=== PATIENT | female | born 1945 | race Caucasian/White ===

== ENCOUNTER 2022-08-09 09:01 | Outpatient (REF) | payer MEDICARE, SELFPAY ==
--- NOTE | ~2022-08-09 | XR_ITS ---
EXAMINATION: XR CHEST CLINICAL INFORMATION: Asthma COMPARISON: None available. TECHNIQUE: 2 views of the chest were obtained. FINDINGS: No significant abnormality is noted involving the heart, lungs, mediastinum, bony thorax or soft tissues. XR/XR chest 2V IMPRESSION: Unremarkable chest examination.
== END 2022-08-09 09:02 | disposition home or self-care (01) ==
LOC: HO.HMGCX 09:01
PROVIDERS: Visit Provider Internal Medicine
DX: J45.909 Unspecified asthma, uncomplicated (principal)
CPT/HCPCS: 71046

== ENCOUNTER 2023-09-12 10:52 | Outpatient (AMB) | payer MEDICARE, SELFPAY ==
[2023-09-12 10:57] VITALS: BP 120/78; PULSE 98; O2SAT 96; BMI 27.1
--- NOTE | 2023-09-12 10:57 | A.OFFVIS_ITS ---
Vital Signs 09/12/23 10:57 Height 4 ft 11 in Weight 134 lb 6 oz BMI 27.1 BP 120/78 Blood Pressure Location Rt brachial Position Sitting Pulse 98 Pulse Source Pulse Oximeter Pulse Oximetry (%) 96 Oxygen Delivery Method Room Air Intake Visit Reasons: Shortness of breath Allergies shellfish derived Allergy (Severe, Verified 09/12/23 11:24) Anaphylaxis acetaminophen [From Percocet] Allergy (Intermediate, Verified 09/12/23 11:24) Hives oxycodone [From Percodan] Allergy (Intermediate, Verified 09/12/23 11:24) Hives aspirin Allergy (Mild, Verified 09/12/23 11:24) Hives meperidine [From Demerol] Allergy (Mild, Verified 09/12/23 11:24) Rash morphine Allergy (Mild, Verified 09/12/23 11:24) Rash propoxyphene [From Darvon] Allergy (Verified 09/12/23 11:24) Hives ivp dye Allergy (Mild, Uncoded 09/12/23 11:24) Rash most norcotic Allergy (Unknown, Uncoded 09/12/23 11:03) hives, nausea NARCOTICS Adverse Reaction (Unknown, Uncoded 09/12/23 11:03) UNKNOWN HPI HPI Shortness of breath: Details: Lenore is a pleasant 78 year old female, never smoker, with underlying asthma, HTN, hyperlipidemia and palpitations. She was referred by cardiology for pulmonary evaluation. She reports dyspnea on exertion, such as stairs, wheezing, and dry cough. Denies any chest tightness. She previously was using flovent and albuterol with poor effect, recently switched to Breo 100 mcg 4 weeks ago with minimal change. She reports environmental allergies, allergy testing many years ago. She has 1 dog and 1 cat at home. She denies any occupational exposures. She reports multiple first degree members with asthma. She also notes her daughter has a lung condition which is similar to cystic fibrosis and s/p lobectomy, however can not recall condition. She denies any genetic testing. She had prior PFT from last year which reportedly revealed that her lung function has been decreasing. She believes last PFT was performed at [facility] in 2022. She states she has some lung scarring noted on prior imaging. She had recent CXR three weeks ago which was unremarkable, report below. [facility] Social History Patient Tobacco Use Status: Never used Tobacco Review of Systems Const Denies chills, Denies excessive sweating, Denies fever(s), Denies headache(s) and Denies night sweats Eyes Denies dry eyes, Denies irritation and Denies itchy eyes ENT Reports Normal hearing present, Denies headache(s), Denies nasal congestion, Denies nasal discharge, Denies post nasal drip and Denies sore throat Card Denies chest pain, Denies chest pain at rest, Denies chest pain with activity, Denies claudication, Denies leg edema, Denies orthopnea and Denies paroxysmal nocturnal dyspnea Resp Denies chest congestion, Denies excessive phlegm production, Denies pain on inspiration, Denies pain with cough and Denies stridor Musc Denies myalgias Neuro Reports Normal hearing present and Denies headache(s) Endo Denies excessive sweating Marquis/Lymph Denies lymphadenopathy Aller/Immun Denies itchy eyes and Denies seasonal rhinorrhea Physical Exam Vital Signs: Last Vital Signs Pulse 98 09/12/23 10:57 BP 120/78 09/12/23 10:57 Pulse Ox 96 09/12/23 10:57 Oxygen Delivery Method Room Air 09/12/23 10:57 BMI result Body Mass Index 27.1 Const General: cooperative, healthy appearing, comfortable, no acute distress, well developed and alert Orientation/consciousness: patient oriented x3 Limitations: no limitations HEENT Head: Yes normal to inspection, Yes normocephalic and Yes atraumatic Ears: hearing grossly normal bilaterally and external ears normal Eyes General: appearance normal, both eyes and all related structures Eyelids: Yes eyelids normal Sclerae: sclerae normal EOM: EOMs intact bilaterally Neck Neck: Yes normal visual inspection and Yes no lymphadenopathy Lymphatic: no lymphadenopathy noted Chest Chest palpation & inspection: normal inspection of the chest Resp Effort & Inspection: normal respiratory effort, able to speak in complete sentences, no audible wheezes, no cough, no stridor, not tachypneic, no tripod positioning and no use of accessory muscles Auscultation: wheezes (improved with duoneb) expiratory wheezes Cardio Jugular venous distension: no JVD Rate: regular rate Rhythm: regular rhythm Skin Other: warm, dry General skin exam: no rashes or lesions noted Neuro General: patient oriented x3 Cranial nerves: Yes Normal hearing present Cognition (Neuro): normal cognition Gait exam (Neuro): Normal gait present Extrem General: Yes normal to inspection, Yes capillary refill normal, Yes no clubbing, cyanosis or edema and Yes no pedal edema Psych Appearance: grossly normal and well kempt Speech and movement: Normal speech and movement present and Clear speech present Affect: normal affect Attitude: cooperative Thought process: Normal thought process present Thought content: Normal thought content present Insight: Good insight present (Psych) Judgement: Good judgement present (Psych) Office Procedures Nebulizer Treatment Nebulizer Treatment 40902-Mxefzonoi/MDI RX initial, or Nebulizer Subsequent Treatment Office Meds ipratropium 0.5 mg-albuterol 3 mg (2.5 mg base)/3 mL nebulization soln Performing Provider: Phoebe Hamm NP Performing Location: [facility] [place] Pulmonology Services-[facility] Administered by: Shruthi Ricardo LPN on 09/12/23 11:52 Dose Route Admin Location Dispensed Lot Number Expiration Date [facility] [employer] 3 mL inhalation 3 mL [id number] 12/24/24 91215-808-80 [employer] Results Reviewed Results Reviewed: [facility] [place] [facility] [address] [place] [address] XRay Report Signed Patient: Lenore Albright MR#: [id number] : 1945 Acct:[id number] Age/Sex: 77 / F ADM Date: 08/09/22 Loc: .[facility] Attending Dr: Navid Villanueva MD Ordering Physician: Navid Villanueva MD Date of Service: 08/09/22 Procedure(s): XR chest 2V Accession Number(s): [id number] cc: Navid Villanueva MD~ EXAMINATION: XR CHEST CLINICAL INFORMATION: Asthma COMPARISON: None available. TECHNIQUE: 2 views of the chest were obtained. FINDINGS: No significant abnormality is noted involving the heart, lungs, mediastinum, bony thorax or soft tissues. XR/XR chest 2V IMPRESSION: Unremarkable chest examination. Dictated By: Lobito Cadet MD Signed By: <Electronically signed by Lobito Cadet MD in OV> 08/09/22 0935 Assessment & Plan Assessment & Plan (1) Asthma: Code(s): J45.909 - Unspecified asthma, uncomplicated Category: Medical (2) Environmental allergies: Code(s): Z91.09 - Other allergy status, other than to drugs and biological substances Category: Medical Plan Lenore's symptoms are likely related to underlying asthma. Will obtain prior PFT to assess severity. Will increase Breo from 100 mcg to 200 mcg and send for RAST as there may be an allergic component contributing to symptoms. On exam patient with expiratory wheezes throughout, improved with duoneb. Will also send in 5 day prednisone course. Recent CXR unremarkable. Will consider chest CT after evaluation at next visit. All questions were answered and patient is in agreement of plan. Will follow up to review results and response to increased Breo. Orders: Orders Immunoglobulin E 09/12/23 Z91.09 - Other allergy status, other than to drugs and biological substances Complete Blood Count Auto Diff 09/12/23 Z91.09 - Other allergy status, other than to drugs and biological substances Resp Allergy Profile Region I 09/12/23 Z91.09 - Other allergy status, other than to drugs and biological substances AMB Nebulizer Treatment 09/12/23 J45.909 - Unspecified asthma, uncomplicated Medications: New prednisone 40 mg x 5 days followed by 20 mg x 5 days 40 mg (2 x 20 mg) PO DAILY 15 tabs 0RF fluticasone furoate-vilanterol 200-25 mcg/dose (Breo Ellipta) 1 inh inhalation DAILY 60 ea 3RF Coding Level of Care Code New Pt Level 4 (22859) Diagnoses Asthma J45.909 Environmental allergies Z91.09 CPT Codes Nebulizer Treatment - Nebulizer Treatment, initial or subsequent: 32485- Nebulizer/MDI RX initial, or Nebulizer Subsequent Treatment ([id number])
== END 2023-09-12 12:03 | disposition home or self-care (01) ==
PROVIDERS: PCP Internal Medicine; Referring Provider Nurse Practitioner Family; Visit Provider Nurse Practitioner Family
DX: J45.909 Unspecified asthma, uncomplicated (principal); Z91.09 Other allergy status, other than to drugs and biological substances
CPT/HCPCS: 99204

== ENCOUNTER → 2023-09-12 10:52 | Outpatient (BNVA) | payer MEDICARE, SELFPAY | PROVIDERS: PCP Internal Medicine; Referring Provider Nurse Practitioner Family; Visit Provider Nurse Practitioner Family | DX: J45.909 Unspecified asthma, uncomplicated (principal); Z91.09 Other allergy status, other than to drugs and biological substances | CPT/HCPCS: 94640; 99202 ==

== ENCOUNTER 2023-09-12 12:07 | Outpatient (REF) | payer MEDICARE, SELFPAY ==
[2023-09-12 13:56] LABS: MANUAL DIFF FLAG NO
[2023-09-12 13:58] LABS: Basophils Percent Auto 0.5 % (0-2); Eosinophils Absolute Auto 0.1 X10*3/uL (0.0-0.4); Eosinophils Percent Auto 0.9 % (0-4); Hematocrit 42.4 % (37.0-47.0); Hemoglobin 13.6 g/dl (12.0-16.0); Imm Gran Abs Auto 0.03 X10*3/uL (0.00-0.03); Imm Gran Pct Auto 0.4 % (0.0-0.4); Lymphocytes Absolute Auto 2.4 X10*3/uL (1.2-4.9); Lymphocytes Percent Auto 30.5 % (20-40); Mean Corpuscular HGB Conc 32.1 g/dl (31.0-35.0); Mean Corpuscular Volume 93.4 fL (80.0-98.0); Mean Platelet Volume 9.2 fL (9.4-12.3); Monocytes Absolute Auto 0.7 X10*3/uL (0.1-1.2); Neutrophils Absolute Auto 4.6 x10*3/uL (2.0-8.3); Neutrophils Percent Auto 58.7 % (45-73); Platelet Count 282 X10*3/uL (160-400); Red Blood Count 4.54 X10*6/uL (4.20-5.50); Red Cell Distribution Width 13.1 % (11.0-16.0); White Blood Count 7.8 X10*3/uL (4.8-10.8)
[2023-09-16 05:57] LABS: Immunoglobulin E <2 kU/L (<OR=114)
[2023-09-16 18:53] LABS: Class Alternaria alternata 0; Class Aspergillus fumigatus 0; Class Bermuda Grass 0; Class Birch 0; Class Cat Dander 0; Class Cladosporium herbarum 0; Class Cockroach 0; Class Common Ragweed 0; Class Cottonwood 0; Class Derm. pterony 0; Class Dermatophagoides farinae 0; Class Dog Dander 0; Class Elm 0; Class Maple Box Elder 0; Class Mountain Cedar 0; Class Mouse Urine Protein 0; Class Mugwort 0; Class Oak 0; Class Penicillium crysogenum 0; Class Rough Pigweed 0; Class Sheep Sorrel 0; Class Sycamore 0; Class Timothy Grass 0; Class Walnut Tree 0; Class White Ash 0; Class White Mulberry 0; D001 IgE D pteronyssinus <0.10 kU/L; D002 - IgE D farinae <0.10 kU/L; E001 - IgE Cat Dander <0.10 kU/L; E005 - IgE Dog Dander <0.10 kU/L; E072-IgE Mouse Urine <0.10 kU/L; G002 IgE Bermuda Grass <0.10 kU/L; G006 - IgE Timothy Grass <0.10 kU/L; I006-IgE Cockroach, German <0.10 kU/L; Immunoglobulin E <2 kU/L (<OR=114); M001 IgE Penicillium chrysogen <0.10 kU/L; M002 - IgE Cladosporium herbar <0.10 kU/L; M003 - IgE Aspergillus fumigat <0.10 kU/L; M006 - IgE Alternaria alternat <0.10 kU/L; T001 IgE Maple/Box Elder <0.10 kU/L; T003 IgE Common Silver Birch <0.10 kU/L; T006 - IgE Cedar, Mountain <0.10 kU/L; T007 - IgE Oak, White <0.10 kU/L; T008 IgE Elm, American <0.10 kU/L; T010 - IgE Walnut <0.10 kU/L; T011 - IgE Maple Leaf Sycamore <0.10 kU/L; T014 - IgE Cottonwood <0.10 kU/L; T015 - IgE Ash, White <0.10 kU/L; T070 - IgE White Mulberry <0.10 kU/L; W001 - IgE Ragweed, Short <0.10 kU/L; W006 - IgE Mugwort <0.10 kU/L; W014 IgE Pigweed, Common <0.10 kU/L; W018 IgE Sheep Sorrel <0.10 kU/L
== END 2023-09-12 12:08 | disposition home or self-care (01) ==
LOC: HO.WFDLDS 12:07
PROVIDERS: Visit Provider Nurse Practitioner Family
DX: Z91.09 Other allergy status, other than to drugs and biological substances (principal)
CPT/HCPCS: 36415; 82785; 85025; 86003

== ENCOUNTER 2023-10-08 11:06 | Outpatient (AMB) | payer MEDICARE, SELFPAY ==
--- NOTE | 2023-10-08 11:06 | A.OFFVIS_ITS ---
Vital Signs 10/08/23 11:11 Height 4 ft 11 in Weight 133 lb 2 oz BMI 26.9 BP 140/78 H Blood Pressure Location Rt brachial Position Sitting Pulse 119 H Pulse Source Pulse Oximeter Pulse Oximetry (%) 97 Oxygen Delivery Method Room Air Intake Visit Reasons: Still feeling sob, wheezing,congested cough Allergies shellfish derived Allergy (Severe, Verified 10/08/23 11:15) Anaphylaxis acetaminophen [From Percocet] Allergy (Intermediate, Verified 10/08/23 11:15) Hives oxycodone [From Percodan] Allergy (Intermediate, Verified 10/08/23 11:15) Hives aspirin Allergy (Mild, Verified 10/08/23 11:15) Hives meperidine [From Demerol] Allergy (Mild, Verified 10/08/23 11:15) Rash morphine Allergy (Mild, Verified 10/08/23 11:15) Rash propoxyphene [From Darvon] Allergy (Verified 10/08/23 11:15) Hives ivp dye Allergy (Mild, Uncoded 10/08/23 11:15) Rash most norcotic Allergy (Unknown, Uncoded 10/08/23 11:15) hives, nausea NARCOTICS Adverse Reaction (Unknown, Uncoded 10/08/23 11:15) UNKNOWN HPI HPI Still feeling sob, wheezing,congested cough: Details: Lenore is a pleasant 78 year old female, never smoker, with underlying asthma, HTN, hyperlipidemia and palpitations. At the last visit she was switched from Breo 100 mcg to 200 mcg with moderate improvement in symptoms. However over the last few days has had worsening dyspnea, dry cough and wheezing. She also notes significant post nasal drip. She has been using her nebulizer q 4-5 hours with minimal relief. She denies fevers, chills or sick contacts. [facility] Social History Patient Tobacco Use Status: Never used Tobacco Review of Systems Const Denies chills, Denies excessive sweating, Denies fever(s), Denies headache(s) and Denies night sweats Eyes Denies dry eyes, Denies irritation and Denies itchy eyes ENT Reports Normal hearing present, Denies headache(s) and Reports post nasal drip Card Denies chest pain, Denies chest pain at rest, Denies chest pain with activity, Denies claudication, Denies leg edema, Denies orthopnea and Denies paroxysmal nocturnal dyspnea Resp Denies chest congestion, Denies excessive phlegm production, Denies pain on inspiration, Denies pain with cough and Denies stridor Musc Denies myalgias Neuro Reports Normal hearing present and Denies headache(s) Endo Denies excessive sweating Marquis/Lymph Denies lymphadenopathy Aller/Immun Denies itchy eyes and Denies seasonal rhinorrhea Physical Exam Vital Signs: Last Vital Signs Pulse 119 H 10/08/23 11:11 BP 140/78 H 10/08/23 11:11 Pulse Ox 97 10/08/23 11:11 Oxygen Delivery Method Room Air 10/08/23 11:11 BMI result Body Mass Index 26.9 Const General: cooperative, healthy appearing, comfortable, no acute distress, well developed and alert Orientation/consciousness: patient oriented x3 Limitations: no limitations HEENT Head: Yes normal to inspection, Yes normocephalic and Yes atraumatic Ears: hearing grossly normal bilaterally and external ears normal Eyes General: appearance normal, both eyes and all related structures Eyelids: Yes eyelids normal Sclerae: sclerae normal EOM: EOMs intact bilaterally Neck Neck: Yes normal visual inspection and Yes no lymphadenopathy Lymphatic: no lymphadenopathy noted Chest Chest palpation & inspection: normal inspection of the chest Resp Effort & Inspection: normal respiratory effort, able to speak in complete sentences, no audible wheezes, no cough, no stridor, not tachypneic, no tripod positioning and no use of accessory muscles Auscultation: wheezes (faint ) expiratory wheezes and diminished lung sounds Cardio Jugular venous distension: no JVD Rate: regular rate Rhythm: regular rhythm Skin Other: warm, dry General skin exam: no rashes or lesions noted Neuro General: patient oriented x3 Cranial nerves: Yes Normal hearing present Cognition (Neuro): normal cognition Gait exam (Neuro): Normal gait present Extrem General: Yes normal to inspection, Yes capillary refill normal, Yes no clubbing, cyanosis or edema and Yes no pedal edema Psych Appearance: grossly normal and well kempt Speech and movement: Normal speech and movement present and Clear speech present Affect: normal affect Attitude: cooperative Thought process: Normal thought process present Thought content: Normal thought content present Insight: Good insight present (Psych) Judgement: Good judgement present (Psych) Assessment & Plan Assessment & Plan (1) Asthma: Code(s): J45.909 - Unspecified asthma, uncomplicated Category: Medical (2) Environmental allergies: Code(s): Z91.09 - Other allergy status, other than to drugs and biological substances Category: Medical Plan Will send in prednisone and trial ipratropium nasal spray. Patient aware to call office if symptoms do not improve and seek emergent care if symptoms worsen. She has a close follow up scheduled, will review response to prednisone, review records and consider chest CT. All questions were answered and patient is in agreement of plan. Will follow up to review results and response to increased Breo. Medications: New prednisone 40 mg (2 x 20 mg) PO DAILY 15 tabs 0RF ipratropium bromide administer into each nostril 2 sprays intranasal BID 30 mL 0RF ipratropium-albuterol 0.5 mg-3 mg(2.5 mg base)/3 mL 3 mL inhalation Q6H PRN 180 mL 2RF wheezing J45.909 - Unspecified asthma, uncomplicated prednisone 40 mg x 5 days followed by 20 mg x 5 days 40 mg (2 x 20 mg) PO DAILY 15 tabs 0RF Discontinued prednisone 40 mg x 5 days followed by 20 mg x 5 days Discontinued Reason: Patient Completed Course 40 mg (2 x 20 mg) PO DAILY 15 tabs 0RF Coding Level of Care Code Est Pt Level 3 (01738) Diagnoses Asthma J45.909 Environmental allergies Z91.09
[2023-10-08 11:11] VITALS: BP 140/78; PULSE 119; O2SAT 97; BMI 26.9
== END 2023-10-08 13:30 | disposition home or self-care (01) ==
PROVIDERS: PCP Internal Medicine; Visit Provider Nurse Practitioner Family
DX: J45.909 Unspecified asthma, uncomplicated (principal); Z91.09 Other allergy status, other than to drugs and biological substances
CPT/HCPCS: 99213

== ENCOUNTER → 2023-10-08 11:06 | Outpatient (BNVA) | payer MEDICARE, SELFPAY | PROVIDERS: PCP Internal Medicine; Visit Provider Nurse Practitioner Family | DX: J45.909 Unspecified asthma, uncomplicated (principal); I10 Essential (primary) hypertension; E78.5 Hyperlipidemia, unspecified; R00.2 Palpitations; Z91.09 Other allergy status, other than to drugs and biological substances | CPT/HCPCS: 99212 ==

== ENCOUNTER 2023-10-24 10:38 | Outpatient (AMB) | payer MEDICARE, SELFPAY ==
--- NOTE | 2023-10-24 10:46 | MHC.OFFVIS ---
Vital Signs 10/24/23 10:47 Height 4 ft 11 in Weight 129 lb 6 oz BMI 26.1 BP 110/64 Blood Pressure Location Lt brachial Position Sitting Pulse 92 Pulse Source Pulse Oximeter Pulse Oximetry (%) 97 Oxygen Delivery Method Room Air Intake Visit Reasons: Shortness of breath Allergies shellfish derived Allergy (Severe, Verified 10/24/23 10:54) Anaphylaxis acetaminophen [From Percocet] Allergy (Intermediate, Verified 10/24/23 10:54) Hives oxycodone [From Percodan] Allergy (Intermediate, Verified 10/24/23 10:54) Hives aspirin Allergy (Mild, Verified 10/24/23 10:54) Hives meperidine [From Demerol] Allergy (Mild, Verified 10/24/23 10:54) Rash morphine Allergy (Mild, Verified 10/24/23 10:54) Rash propoxyphene [From Darvon] Allergy (Verified 10/24/23 10:54) Hives ivp dye Allergy (Mild, Uncoded 10/24/23 10:54) Rash most norcotic Allergy (Unknown, Uncoded 10/24/23 10:54) hives, nausea NARCOTICS Adverse Reaction (Unknown, Uncoded 10/24/23 10:54) UNKNOWN HPI HPI Shortness of breath: Details: Lenore is a pleasant 78 year old female, never smoker, with underlying asthma, HTN, hyperlipidemia and palpitations. At baseline has been had suboptimal relief with Breo 200 mcg. She was recently treated with prednisone 40 mg x 5 days with resolution of symptoms but recurred once stopped. She continues with dyspnea, wheezing and persistent dry cough. Of note, she reports mouth irritation with Breo, requesting alternative. Today presents to review chest CT results. [facility] Social History Patient Tobacco Use Status: Never used Tobacco Review of Systems Const Denies chills, Denies excessive sweating, Denies fever(s), Denies headache(s) and Denies night sweats Eyes Denies dry eyes, Denies irritation and Denies itchy eyes ENT Reports Normal hearing present, Denies headache(s) and Reports post nasal drip Card Denies chest pain, Denies chest pain at rest, Denies chest pain with activity, Denies claudication, Denies leg edema, Denies orthopnea and Denies paroxysmal nocturnal dyspnea Resp Denies chest congestion, Denies excessive phlegm production, Denies pain on inspiration, Denies pain with cough and Denies stridor Musc Denies myalgias Neuro Reports Normal hearing present and Denies headache(s) Endo Denies excessive sweating Marquis/Lymph Denies lymphadenopathy Aller/Immun Denies itchy eyes and Denies seasonal rhinorrhea Physical Exam Vital Signs: Last Vital Signs Pulse 92 10/24/23 10:47 BP 110/64 10/24/23 10:47 Pulse Ox 97 10/24/23 10:47 Oxygen Delivery Method Room Air 10/24/23 10:47 BMI result Body Mass Index 26.1 Const General: cooperative, healthy appearing, comfortable, no acute distress, well developed and alert Orientation/consciousness: patient oriented x3 Limitations: no limitations HEENT Head: Yes normal to inspection, Yes normocephalic and Yes atraumatic Ears: hearing grossly normal bilaterally and external ears normal Eyes General: appearance normal, both eyes and all related structures Eyelids: Yes eyelids normal Sclerae: sclerae normal EOM: EOMs intact bilaterally Neck Neck: Yes normal visual inspection and Yes no lymphadenopathy Lymphatic: no lymphadenopathy noted Chest Chest palpation & inspection: normal inspection of the chest Resp Other: persistent dry cough throughout visit Effort & Inspection: normal respiratory effort, able to speak in complete sentences, no audible wheezes, no stridor, not tachypneic, no tripod positioning and no use of accessory muscles Auscultation: diminished lung sounds Cardio Jugular venous distension: no JVD Rate: regular rate Rhythm: regular rhythm Skin Other: warm, dry General skin exam: no rashes or lesions noted Neuro General: patient oriented x3 Cranial nerves: Yes Normal hearing present Cognition (Neuro): normal cognition Gait exam (Neuro): Normal gait present Extrem General: Yes normal to inspection, Yes capillary refill normal, Yes no clubbing, cyanosis or edema and Yes no pedal edema Psych Appearance: grossly normal and well kempt Speech and movement: Normal speech and movement present and Clear speech present Affect: normal affect Attitude: cooperative Thought process: Normal thought process present Thought content: Normal thought content present Insight: Good insight present (Psych) Judgement: Good judgement present (Psych) Assessment & Plan Assessment & Plan (1) Asthma: Code(s): J45.909 - Unspecified asthma, uncomplicated Category: Medical (2) Environmental allergies: Code(s): Z91.09 - Other allergy status, other than to drugs and biological substances Category: Medical (3) Interstitial lung disease: Code(s): J84.9 - Interstitial pulmonary disease, unspecified Category: Medical Plan At the last visit, Lenore was prescribed prednisone with complete resolution of cough however once completed, symptoms recurred. Reviewed chest CT which revealed areas of ground glass opacities with early bibasilar honeycombing, suggestive of an evolving ILD. Will place on prednisone 40 mg QD x 4 weeks and reassess symptoms as well as radiographic changes with chest CT. 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 Also discussed importance of tapering and not stopping medication abruptly. Patient recently started on Metformin for new dx of DMII. Advised to inform PCP of new medication regimen. Will also switch Breo to Symbicort. Patient recalls prior PFT performed at [facility], will attempt to obtain. Discussed the likelihood of getting updated PFT. All questions were answered and patient is in agreement of plan. Will follow up to review results of chest CT and response to prednisone. Orders: Orders CT chest wo IV con 3 Weeks J84.9 - Interstitial pulmonary disease, unspecified Medications: New prednisone 40 mg (2 x 20 mg) PO DAILY 60 tabs 0RF budesonide-formoterol 80-4.5 mcg/actuation (Symbicort) 2 puffs inhalation Q12H 10.2 grams 3RF Discontinued fluticasone furoate-vilanterol 200-25 mcg/dose (Breo Ellipta) Discontinued Reason: Patient Completed Course 1 inh inhalation DAILY 60 ea 3RF Coding Level of Care Code Est Pt Level 4 (12763) Diagnoses Asthma J45.909 Environmental allergies Z91.09 Interstitial lung disease J84.9
[2023-10-24 10:47] VITALS: BP 110/64; PULSE 92; O2SAT 97; BMI 26.1
== END 2023-10-24 11:41 | disposition home or self-care (01) ==
PROVIDERS: PCP Internal Medicine; Visit Provider Nurse Practitioner Family
DX: J45.909 Unspecified asthma, uncomplicated (principal); Z91.09 Other allergy status, other than to drugs and biological substances; J84.9 Interstitial pulmonary disease, unspecified
CPT/HCPCS: 99214

== ENCOUNTER → 2023-10-24 10:38 | Outpatient (BNVA) | payer MEDICARE, SELFPAY | PROVIDERS: PCP Internal Medicine; Visit Provider Nurse Practitioner Family | DX: J45.909 Unspecified asthma, uncomplicated (principal); J84.9 Interstitial pulmonary disease, unspecified; Z91.09 Other allergy status, other than to drugs and biological substances | CPT/HCPCS: 99212 ==

== ENCOUNTER 2023-11-21 13:21 | Outpatient (AMB) | payer MEDICARE, SELFPAY ==
[2023-11-21 13:22] VITALS: BP 132/68; PULSE 105; O2SAT 98; BMI 27.1
--- NOTE | 2023-11-21 13:22 | MHC.OFFVIS ---
Vital Signs 11/21/23 13:22 Height 4 ft 11 in Weight 134 lb 2 oz BMI 27.1 BP 132/68 Blood Pressure Location Lt brachial Position Sitting Pulse 105 H Pulse Source Pulse Oximeter Pulse Oximetry (%) 98 Oxygen Delivery Method Room Air Intake Visit Reasons: Shortness of breath Allergies shellfish derived Allergy (Severe, Verified 11/21/23 13:27) Anaphylaxis acetaminophen [From Percocet] Allergy (Intermediate, Verified 11/21/23 13:27) Hives oxycodone [From Percodan] Allergy (Intermediate, Verified 11/21/23 13:27) Hives aspirin Allergy (Mild, Verified 11/21/23 13:27) Hives meperidine [From Demerol] Allergy (Mild, Verified 11/21/23 13:27) Rash morphine Allergy (Mild, Verified 11/21/23 13:27) Rash propoxyphene [From Darvon] Allergy (Verified 11/21/23 13:27) Hives ivp dye Allergy (Mild, Uncoded 11/21/23 13:27) Rash most norcotic Allergy (Unknown, Uncoded 11/21/23 13:27) hives, nausea NARCOTICS Adverse Reaction (Unknown, Uncoded 11/21/23 13:27) UNKNOWN HPI HPI Shortness of breath: Details: Lenore is a pleasant 78 year old female, never smoker, with underlying asthma, HTN, hyperlipidemia and palpitations. At baseline has had suboptimal relief with Breo 200 mcg. She was previously treated with prednisone 40 mg x 5 days with resolution of symptoms but recurred once stopped. Since the last visit, she was admitted to [facility] for dyspnea and hyperglycemia. She was started on 40 mg prednisone QD for an evolving ILD, however developed hyperglycemia and lactic acidosis while on Metformin. She was slowly tapered off prednisone while inpatient. CT chest report noted bibasilar reticular markings no note of ground glass opacites however was on prednisone. She continues with dyspnea, wheezing and persistent dry cough. [facility] Social History Patient Tobacco Use Status: Never used Tobacco Review of Systems Const Denies chills, Denies excessive sweating, Denies fever(s), Denies headache(s) and Denies night sweats Eyes Denies dry eyes, Denies irritation and Denies itchy eyes ENT Reports Normal hearing present, Denies headache(s) and Reports post nasal drip Card Denies chest pain, Denies chest pain at rest, Denies chest pain with activity, Denies claudication, Denies leg edema, Denies orthopnea and Denies paroxysmal nocturnal dyspnea Resp Denies chest congestion, Denies excessive phlegm production, Denies pain on inspiration, Denies pain with cough and Denies stridor Musc Denies myalgias Neuro Reports Normal hearing present and Denies headache(s) Endo Denies excessive sweating Marquis/Lymph Denies lymphadenopathy Aller/Immun Denies itchy eyes and Denies seasonal rhinorrhea Physical Exam Vital Signs: Last Vital Signs Pulse 105 H 11/21/23 13:22 BP 132/68 11/21/23 13:22 Pulse Ox 98 11/21/23 13:22 Oxygen Delivery Method Room Air 11/21/23 13:22 BMI result Body Mass Index 27.1 Const General: cooperative, healthy appearing, comfortable, no acute distress, well developed and alert Orientation/consciousness: patient oriented x3 Limitations: no limitations HEENT Head: Yes normal to inspection, Yes normocephalic and Yes atraumatic Ears: hearing grossly normal bilaterally and external ears normal Eyes General: appearance normal, both eyes and all related structures Eyelids: Yes eyelids normal Sclerae: sclerae normal EOM: EOMs intact bilaterally Neck Neck: Yes normal visual inspection and Yes no lymphadenopathy Lymphatic: no lymphadenopathy noted Chest Chest palpation & inspection: normal inspection of the chest Resp Other: persistent dry cough throughout visit Effort & Inspection: normal respiratory effort, able to speak in complete sentences, no audible wheezes, no stridor, not tachypneic, no tripod positioning and no use of accessory muscles Auscultation: diminished lung sounds Cardio Jugular venous distension: no JVD Rate: regular rate Rhythm: regular rhythm Skin Other: warm, dry General skin exam: no rashes or lesions noted Neuro General: patient oriented x3 Cranial nerves: Yes Normal hearing present Cognition (Neuro): normal cognition Gait exam (Neuro): Normal gait present Extrem General: Yes normal to inspection, Yes capillary refill normal, Yes no clubbing, cyanosis or edema and Yes no pedal edema Psych Appearance: grossly normal and well kempt Speech and movement: Normal speech and movement present and Clear speech present Affect: normal affect Attitude: cooperative Thought process: Normal thought process present Thought content: Normal thought content present Insight: Good insight present (Psych) Judgement: Good judgement present (Psych) Assessment & Plan Assessment & Plan (1) Asthma: Code(s): J45.909 - Unspecified asthma, uncomplicated Category: Medical (2) Environmental allergies: Code(s): Z91.09 - Other allergy status, other than to drugs and biological substances Category: Medical (3) Interstitial lung disease: Code(s): J84.9 - Interstitial pulmonary disease, unspecified Category: Medical Plan Previously Lenore had noted complete resolution of cough and improvements in dyspnea on prednisone. However when discussing today she can not recall. Throughout visit, patient with persistent cough and throat clearing. Discussed the possibility of contribution from PND. Prior allergy testing negative. She has trialed ipratropium with some improvement, will send refill. She is requesting cough syrup for night time use, previously tolerated codeine will send. Discussed again potential for underlying ILD contributing to symptoms however she has had difficulties managing blood glucose with oral medications, stating BG is in the 300s in the evening. Would consider restarting prednisone however she needs to consult with PCP regarding DMII. Most recent chest CT report did not note any ggo however did note reticular bibasilar markings. Will attempt to obtain images from [facility] to review. All questions were answered and patient is in agreement of plan. Will have close follow up to review. She is aware if symptoms become severe to seek emergent care. Medications: New codeine-guaifenesin 10-100 mg/5 mL 10 mL PO Q4-6H PRN 120 mL 0RF cough Refilled ipratropium bromide administer into each nostril 2 sprays intranasal BID 30 mL 6RF Coding Level of Care Code Est Pt Level 4 (72110) Diagnoses Asthma J45.909 Environmental allergies Z91.09 Interstitial lung disease J84.9
== END 2023-11-21 14:06 | disposition home or self-care (01) ==
PROVIDERS: PCP Internal Medicine; Visit Provider Nurse Practitioner Family
DX: J45.909 Unspecified asthma, uncomplicated (principal); Z91.09 Other allergy status, other than to drugs and biological substances; J84.9 Interstitial pulmonary disease, unspecified
CPT/HCPCS: 99214

== ENCOUNTER → 2023-11-21 13:21 | Outpatient (BNVA) | payer MEDICARE, SELFPAY | PROVIDERS: PCP Internal Medicine; Visit Provider Nurse Practitioner Family | DX: J45.909 Unspecified asthma, uncomplicated (principal); Z91.09 Other allergy status, other than to drugs and biological substances; J84.9 Interstitial pulmonary disease, unspecified; Z79.899 Other long term (current) drug therapy | CPT/HCPCS: 99212 ==

== ENCOUNTER 2023-12-12 13:55 | Outpatient (AMB) | payer MEDICARE, SELFPAY ==
--- NOTE | 2023-12-12 13:57 | MHC.OFFVIS ---
Vital Signs 12/12/23 13:58 Height 4 ft 11 in Weight 135 lb 4 oz BMI 27.3 BP 110/62 Blood Pressure Location Rt brachial Position Sitting Pulse 77 Pulse Source Pulse Oximeter Pulse Oximetry (%) 98 Oxygen Delivery Method Room Air Intake Visit Reasons: Shortness of breath Allergies shellfish derived Allergy (Severe, Verified 12/12/23 14:03) Anaphylaxis acetaminophen [From Percocet] Allergy (Intermediate, Verified 12/12/23 14:03) Hives oxycodone [From Percodan] Allergy (Intermediate, Verified 12/12/23 14:03) Hives aspirin Allergy (Mild, Verified 12/12/23 14:03) Hives meperidine [From Demerol] Allergy (Mild, Verified 12/12/23 14:03) Rash morphine Allergy (Mild, Verified 12/12/23 14:03) Rash propoxyphene [From Darvon] Allergy (Verified 12/12/23 14:03) Hives ivp dye Allergy (Mild, Uncoded 12/12/23 14:03) Rash most norcotic Allergy (Unknown, Uncoded 12/12/23 14:03) hives, nausea NARCOTICS Adverse Reaction (Unknown, Uncoded 12/12/23 14:03) UNKNOWN HPI HPI Shortness of breath: Details: Lenore is a pleasant 78 year old female, never smoker, with underlying asthma, HTN, hyperlipidemia and palpitations. At baseline has had suboptimal relief with Breo 200 mcg and also notes mouth irration/sores with use so has discontinued. She continues to use singulair. Since stopping Breo, she has had increasing episodes of wheezing and chest tightness. Since the last visit, she also reported increased productive cough with green sputum, previously cough was persistently dry. She notes having an UTI at the same time as productive cough, treated with Bactrim with significant improvements in cough and chest congestion. She also reports improvements in dyspnea since adjusting cardiac medications as well as resolution of palpitations. Today she presents for an acute visit. She reports ongoing post nasal drip, nasal congestion, sinus pain/pressure/congestion for the last week that is progressively worsening. She denies fevers, chills or sick contacts. [facility] Social History Patient Tobacco Use Status: Never used Tobacco Review of Systems Const Denies chills, Denies excessive sweating, Denies fever(s), Denies headache(s) and Denies night sweats Eyes Denies dry eyes, Denies irritation and Denies itchy eyes ENT Reports Normal hearing present, Denies headache(s), Reports nasal congestion, Reports nasal discharge, Reports post nasal drip, Reports sinus pain and Reports sinus pressure Card Denies chest pain, Denies chest pain at rest, Denies chest pain with activity, Denies claudication, Denies leg edema, Denies orthopnea and Denies paroxysmal nocturnal dyspnea Resp Denies chest congestion, Denies excessive phlegm production, Denies pain on inspiration, Denies pain with cough and Denies stridor Musc Denies myalgias Neuro Reports Normal hearing present and Denies headache(s) Endo Denies excessive sweating Marquis/Lymph Denies lymphadenopathy Aller/Immun Denies itchy eyes and Denies seasonal rhinorrhea Physical Exam Vital Signs: Last Vital Signs Pulse 77 12/12/23 13:58 BP 110/62 12/12/23 13:58 Pulse Ox 98 12/12/23 13:58 Oxygen Delivery Method Room Air 12/12/23 13:58 BMI result Body Mass Index 27.3 Const General: cooperative, healthy appearing, comfortable, no acute distress, well developed and alert Orientation/consciousness: patient oriented x3 Limitations: no limitations HEENT Head: Yes normal to inspection, Yes normocephalic and Yes atraumatic Ears: hearing grossly normal bilaterally and external ears normal Eyes General: appearance normal, both eyes and all related structures Eyelids: Yes eyelids normal Sclerae: sclerae normal EOM: EOMs intact bilaterally Neck Neck: Yes normal visual inspection and Yes no lymphadenopathy Lymphatic: no lymphadenopathy noted Chest Chest palpation & inspection: normal inspection of the chest Resp Effort & Inspection: normal respiratory effort, able to speak in complete sentences, no audible wheezes, no cough, no stridor, not tachypneic, no tripod positioning and no use of accessory muscles Auscultation: clear to auscultation bilaterally Cardio Jugular venous distension: no JVD Rate: regular rate Rhythm: regular rhythm Skin Other: warm, dry General skin exam: no rashes or lesions noted Neuro General: patient oriented x3 Cranial nerves: Yes Normal hearing present Cognition (Neuro): normal cognition Gait exam (Neuro): Normal gait present Extrem General: Yes normal to inspection, Yes capillary refill normal, Yes no clubbing, cyanosis or edema and Yes no pedal edema Psych Appearance: grossly normal and well kempt Speech and movement: Normal speech and movement present and Clear speech present Affect: normal affect Attitude: cooperative Thought process: Normal thought process present Thought content: Normal thought content present Insight: Good insight present (Psych) Judgement: Good judgement present (Psych) Assessment & Plan Assessment & Plan (1) Asthma: Code(s): J45.909 - Unspecified asthma, uncomplicated Category: Medical (2) Environmental allergies: Code(s): Z91.09 - Other allergy status, other than to drugs and biological substances Category: Medical (3) Cough: Code(s): R05.9 - Cough, unspecified Category: Medical (4) Sinusitis: Code(s): J32.9 - Chronic sinusitis, unspecified Category: Medical Plan Patient reports symptoms consistent with acute sinusitis, will treat with doxycyline. Aware if symptoms do not improve to call office. At this time, she feels her dyspnea and cough have improved however reports more frequent episodes of wheezing and chest tightness, since discontinuing Breo. Will trial Advair HFA with spacer. Discussed importance of good oral hygiene to prevent thrush. We did review the possibility if cough returns to consider bronchoscopy. Will also trial alternate nasal spray for persistent nasal congestion. All questions were answered and patient is in agreement of plan. Will follow up for regularly scheduled appointment or sooner if needed. Medications: New azelastine administer into each nostril 1 spray intranasal BID 30 mL 0RF doxycycline hyclate 100 mg PO BID 14 caps 0RF fluticasone propion-salmeterol 115-21 mcg/actuation (Advair HFA) 2 puffs inhalation Q12H 12 grams 3RF inhalational spacing device (Aerochamber Plus Z Stat spacer) As directed 1 ea 0RF Discontinued ipratropium bromide administer into each nostril Discontinued Reason: Patient Completed Course 2 sprays intranasal BID 30 mL 6RF Coding Level of Care Code Est Pt Level 4 (42432) Diagnoses Asthma J45.909 Environmental allergies Z91.09 Cough R05.9 Sinusitis J32.9
[2023-12-12 13:58] VITALS: BP 110/62; PULSE 77; O2SAT 98; BMI 27.3
== END 2023-12-12 14:42 | disposition home or self-care (01) ==
PROVIDERS: PCP Internal Medicine; Visit Provider Nurse Practitioner Family
DX: J45.909 Unspecified asthma, uncomplicated (principal); Z91.09 Other allergy status, other than to drugs and biological substances; R05.9 Cough, unspecified; J32.9 Chronic sinusitis, unspecified
CPT/HCPCS: 99214

== ENCOUNTER → 2023-12-12 13:55 | Outpatient (BNVA) | payer MEDICARE, SELFPAY | PROVIDERS: PCP Internal Medicine; Visit Provider Nurse Practitioner Family | DX: J45.909 Unspecified asthma, uncomplicated (principal); Z91.09 Other allergy status, other than to drugs and biological substances; J32.9 Chronic sinusitis, unspecified; R05.9 Cough, unspecified | CPT/HCPCS: 99212 ==